=== PATIENT | male | born 1990 | race Asian ===

== ENCOUNTER 2020-10-26 16:23 | Emergency (ER) | payer OTHER ==
[~2020-10-26] VITALS: Ht 172.7 cm; Wt 70.3 kg
[2020-10-26 16:33] VITALS: BP 143/80
== END 2020-10-26 17:15 | disposition home or self-care (01) ==
LOC: ED 16:50
DX: T16.2XXA Foreign body in left ear, initial encounter (principal); X58.XXXA Exposure to other specified factors, initial encounter; Y93.89 Activity, other specified; Y92.89 Other specified places as the place of occurrence of the external cause; Y99.8 Other external cause status
CPT/HCPCS: 69200; 99281; 99284